=== PATIENT | female | born 1975 | race Caucasian/White ===

== ENCOUNTER → 2021-09-26 16:17 | Outpatient (CLI) | payer BC, SELFPAY ==
[2021-09-26 18:45] LABS: Lactate Dehydrogenase 438 U/L (313-618)
[2021-09-26 18:58] LABS: HCG Quantitative /Beta subunit < 2.4 mIU/mL
[2021-09-26 19:13] LABS: Carcinoembryonic Antigen 1.1 ng/mL (0.1-3.0)
[2021-09-26 19:15] LABS: Testosterone 16.6 ng/dL (5.71-77.0)
[2021-09-26 19:34] LABS: Estradiol, Total 86.9 pg/mL
[2021-09-27 12:06] LABS: Alpha Fetoprotein <0.9 ng/mL (0.0-8.3)
[2021-10-01 05:41] LABS: Anti Mullerian Hormone 0.073 ng/mL (.)
[2021-10-02 13:18] LABS: Inhibin B 9.7 pg/mL (.)
== END ==
PROVIDERS: PCP Nurse Practitioner Family; Referring Provider Obstetrics & Gynecology; Visit Provider Obstetrics & Gynecology
DX: R19.00 Intra-abdominal and pelvic swelling, mass and lump, unspecified site (principal)
CPT/HCPCS: 36415; 82105; 82378; 82397; 82670; 83520; 83615; 84403; 84702

== ENCOUNTER → 2021-10-02 11:55 | Outpatient (CLI) | payer BC, SELFPAY ==
[2021-10-02 13:14] LABS: Cancer Antigen 125 8.7 U/mL (0-35)
== END ==
PROVIDERS: PCP Nurse Practitioner Family; Referring Provider Obstetrics & Gynecology; Visit Provider Obstetrics & Gynecology
DX: R19.09 Other intra-abdominal and pelvic swelling, mass and lump (principal); N93.9 Abnormal uterine and vaginal bleeding, unspecified
CPT/HCPCS: 36415; 86304